=== PATIENT | male | born 1960 | race Caucasian/White ===

== ENCOUNTER → 2017-10-12 08:31 | Outpatient (CLI) | payer BC ==
[2016-03-10 06:36] VITALS: BMI 20.1
--- NOTE | ~2017-10-12 | EC ---
PATIENT:AMBROCIO WOLF DATE OF SERVICE: 10/12/17 SEX: M MEDICAL RECORD: [id number] DATE OF : 60 [facility] AGE OF PATIENT: 57 ADMISSION DATE: 10/12/17 REFERRING PHYSICIAN: INTERPRETING PHYSICIAN: CARO MCGUIRE MD ECHOCARDIOGRAM REPORT ECHO CHARGES 4 ECHO COMPLETE Date: 10/12 CLINICAL DIAGNOSIS: CP/HTN ECHOCARDIOGRAPHIC MEASUREMENTS (adult normal given) AC root (d.<3.7cm) 2.6 cm LV Septum d (<1.2 cm> 1.2 cm Valve Excursion 1.8 cm LV Septum (systole) 1.7 cm Left Atria (s.<4.0cm> 3.6 cm LVPW d(<1.2cm) 1.0 cm RV (d.<2.3cm) 2.9 cm LVPW (sytole) 1.5 cm LV diastole(<5.6CM) 4.2 cm MV E-F(>70mm/sec) cm LV systole 2.5 cm LVOT Diameter 1.6 cm MV exc.(>10mm) cm Est.ejection fraction (50-75%) % DOPPLER: LVIT cm/sec A 56.0 cm/sec E 74.0 cm/sec LA cm/sec RVSP 49.1 mmHg LVOT 111 cm/sec AOP1/2T m/s Asc. Ao 142 cm/sec RVOT 55.0 cm/sec RA cm/sec PA 98.0 cm/sec AV Gradient Peak 8.1 mmHg AV Mean 3.7 mmHg AV Area 1.4 cm MV Gradient Peak 4.1 mmHg MV Mean 1.5 mmHg MV Area cm COMMENTS: Compressor Repairer: Cali PIZARROOE Application Software Developer: Allen Mcguire TAPE# PACS Pericardial Effusion N DATE OF SERVICE: 10/12/2017 PROCEDURE: Transthoracic echocardiogram. FINDINGS: 1. The left ventricle has mild concentric left ventricular hypertrophy. Inflow characteristics are normal. There is no significant regional wall motion abnormalities. Ejection fraction is 55%. 2. The right ventricle appears to be normal size, normal function. 3. The aortic valve has thickening and mild sclerosis of the noncoronary cusp ECHOCARDIOGRAM REPORT [id number] AMBROCIO WOLF without significant evidence of stenosis or insufficiency. 4. The mitral valve is structurally normal. Trace mitral regurgitation. 5. Tricuspid valve has mild tricuspid regurgitation to moderate tricuspid regurgitation, RVSP of 45 to 50 mmHg. 6. The right ventricle is mildly dilated. 7. The right atrium is mildly dilated. 8. The pericardium is normal. CONCLUSIONS: The patient has evidence of mild hypertensive heart disease and has evidence of mild pulmonary hypertension. TRANSINT:[id number] Voice Confirmation ID: [id number] DOCUMENT ID: [id number] CARO MCGUIRE MD at 0942 CC: [id number] DICTATION DATE: 10/13/17 1001 SHIPS EQUIPMENT ENGINEER: 10/13/17 1306 DEP CLI 10/12/17 [facility] [address] [place] [address]
[~2017-10-12 08:31] MED LIST: BAYER CHEWABLE81 MG PO; HYDROCODON-ACE1 EAC7 PO; PLAVIX75 MG PO; TENORMIN25 MG PO
== END | disposition home or self-care (01) ==
LOC: D.ECHO 08:31
DX: R07.9 Chest pain, unspecified (principal); I10 Essential (primary) hypertension

== ENCOUNTER 2017-10-14 09:22 | Outpatient (CLI) | payer BC ==
[~2017-10-14] VITALS: Ht 172.7 cm; Wt 65.5 kg
--- NOTE | ~2017-10-14 | HEMODYNAMI ---
PATIENT:AMBROCIO WLOF MEDICAL RECORD: [id number] : 60 LOCATION:[facility] ADMISSION DATE: 10/14/17 Generatedon:10/14/201712:22 Patient name: AMBROCIO WOLF Patient #: [id number] SSN: : 1960 Date of study: 10/14/2017 Page: Of Hemodynamic Procedure Report Patient Data Patient Demographics Procedure consent was obtained First Name: AMBROCIO Gender: Male Last Name: MARYANN : 1960 [facility] Initial: JANNETH Age: 57 year(s) Patient #: [id number] Race: Unknown Additional ID: [id number] Contact details Address: [address] [place] [address] State: [place] City: [place] Zip code: [address] Past Medical History Allergies Allergen Reaction Date Comments Reported Other allergy 10/14/2017 [facility] Admission Admission Data Admission Date: 10/14/2017 Admission Time: 9:22 Lab Results Lab Result Date: 10/14/2017 Lab Result Time: 11:07 Biochemistry Name Units Result Min Max BUN mg/dl 13 --(--*-)-- 7 18 Creatinine mg/dl 0.8 --(-*--)-- 0.6 1.3 CBC Name Units Result Min Max Hematocrit % 48.8 --(--*-)-- 42 54 Hemoglobin g/dl 16.7 --(---*)-- 13.5 17.5 Procedure Procedure Types Cath Procedure Diagnostic Procedure LHC LHC w/Coronaries Procedure Description Procedure Date Procedure Date: 10/14/2017 Procedure Start Time: 12:05 Procedure End Time: 12:19 Procedure Staff Name Function Efren Mulligan MD Performing Physician Alvin Fernandes RT Monitor Bayron Rivera RN Nurse Anoop Lambert RT Scrub Procedure Data Cath Procedure Fluoroscopy Diagnostic fluoroscopy Total fluoroscopy Time: 1.3 time: 1.3 min min Diagnostic fluoroscopy Total fluoroscopy dose: dose: 55.63 mGy 55.63 mGy Contrast Material Contrast Material Type Amount (ml) Isovue 300 45 Entry Location Entry Primary Successful Side Size Upsize Upsize Entry Closure Sifuentes ccessful Closure Location (Fr) 1 (Fr) 2 (Fr) Remarks Device Remarks Radial Right 6 Fr Mechanical artery Short Compression Estimated blood loss: 5 ml Diagnostic catheters Device Type Used For End Catheter Placement DIAGNOSTIC [place] 110cm 5 Procedure Fr catheter ([id number]) Procedure Complications No complications Procedure Medications Medication Administration Route Dosage Oxygen etCO2 Nasal cannula 2 l/min Heparin Flush Bag added to field 2 bags (1000units/500ml NS) 0.9% NaCl I.V. 100 ml/hr Radial Cocktail added to field 1 syringe (Verapomil 2mg/Nitro 400mcg/Heparin 1500units) Fentanyl I.V. 50 mcg Versed I.V. 1 mg Radial Cocktail I.A. 1 syringe (Verapomil 2mg/Nitro 400mcg/Heparin 1500units) Hemodynamics Rest HGB: 16.7 (g/dl) Heart Rate: 78 (bpm) Pressure Samples Time Site Value (mmHg) Purpose Heart Use Rate(bpm) 12:08 LV 139/-14,12 Snapshot 86 Gradients Valve Time Site Site Mean SEP/DFP Peak To Heart Use 1 2 (mmHg) (sec/min) Peak Rate (mmHg) (bpm) Aortic 12:09 LV AO 59 Snapshots Pre Cath Intra NCS Post Cath Vital Signs Time Heart Resp SPO2 etCO2 NIBP (mmHg) Rhythm Pain Sedation Rate (ipm) (%) (mmHg) Status Level (bpm) 11:52:30 67 11 96 141/54(116) NSR 0 (11) 10(A) , No pain 11:56:42 72 11 96 136/76(113) NSR 0 (11) 10(A) , No pain 12:00:43 71 18 96 122/83(102) NSR 0 (11) 10(A) , No pain 12:04:45 79 18 95 34.5 115/78(97) NSR 0 (11) 10(A) , No pain 12:08:57 86 17 90 21.7 113/71(87) NSR 0 (11) 9(A) , No pain 12:12:55 82 16 92 30 117/89(98) NSR 0 (11) 9(A) , No pain 12:13:46 74 16 92 24 118/71(87) NSR 0 (11) 9(A) , No pain 12:17:51 76 10 95 33 110/64(85) NSR 0 (11) 9(A) , No pain Medications Time Medication Route Dose Verified Delivered Reason Notes Effectiveness by by 11:55:14 Oxygen etCO2 2 l/min Efren Bayron Per Nasal Ese Rivera RN physician cannula 11:55:26 Heparin Flush added 2 bags Efren Bayron used for Bag to Ese Rivera RN procedure (1000units/500ml field MAR NS) 11:55:36 0.9% NaCl I.V. 100 Efren Bayron Per ml/hr Ese Rivera RN physician 11:55:45 Radial Cocktail added 1 Efren Bayron used for (Verapomil to syringe Ese Rivera RN procedure 2mg/Nitro field MAR 400mcg/Heparin 1500units) 12:05:46 Fentanyl I.V. 50 mcg Efren Bayron for sedation Ese Rivera RN, MD 12:05:53 Versed I.V. 1 mg Efren Bayron for sedation Ese Rivera RN, MD 12:08:14 Radial Cocktail I.A. 1 Efren Efren for (Verapomil syringe Ese Mulligan MD vasodilation 2mg/Nitro 400mcg/Heparin 1500units) Procedure Log Time Note 11:30:21 Alvin Fernandes RT(R) (CV) sent for patient. Start room use. 11:36:39 Diagnostic Cath Status : Elective 11:40:22 Time tracking: Regular hours (M-F 7:00 - 5:00) 11:40:25 Plan of Care:Hemodynamics will remain stable., Cardiac rhythm will remain stable., Comfort level will be maintained., Respiratory function will remain adequate., Patient/ family verbilizes understanding of procedure., Procedure tolerated without complication., Recovers from procedure without complications.. 11:40:35 H&P Date Dictated: 10/13/2017 Within 30 days and on chart., H&P Addendum completed by physician on day of procedure. (MUST COMPLETE FOR ALL OUTPATIENTS). 11:42:23 Lab Result : BUN 13 mg/dl 11:42:23 Lab Result : Hematocrit 48.8 % 11:42:23 Lab Result : Hemoglobin 16.7 g/dl 11:42:23 Lab Result : Creatinine 0.8 mg/dl 11:42:27 Family in waiting room. 11:42:46 Patient allergic to Other allergyShrimp 11:42:48 Is the patient allergic to Iodine/contrast media? Yes. 11:42:50 Was the patient premedicated? Yes 11:43:18 Patient received from Pre/Post Procedure Room to CCL 3 Alert and oriented. Tansferred to table in Supine position. 11:43:19 Warm blankets applied, and lydia hugger turned on for patient comfort. 11:43:19 Correct patient and procedure confirmed by team. 11:43:20 Signed procedure consent form obtained from patient. 11:43:21 ECG and BP/O2 sat monitors applied to patient. 11:43:23 Pre-procedure instructions explained to patient. 11:51:06 Vital chart was started 11:55:14 Oxygen 2 l/min etCO2 Nasal cannula was administered by Bayron Rivera RN; Per physician; 11:55:26 Heparin Flush Bag (1000units/500ml NS) 2 bags added to field was administered by Bayron Rivera RN; used for procedure; 11:55:36 0.9% NaCl 100 ml/hr I.V. was administered by Bayron Rivera RN; Per physician; 11:55:45 Radial Cocktail (Verapomil 2mg/Nitro 400mcg/Heparin 1500units) 1 syringe added to field was administered by Bayron Rivera RN; used for procedure; 12:00:00 Baseline sample Acquired. 12:00:05 Rhythm: sinus rhythm 12:00:35 Baseline sample Acquired. 12:00:36 Full Disclosure recording started 12:00:42 Is patient on blood thinner?Yes 12:00:45 ACC The patient was administered the following blood thiners within the last 24 hours: ACCPlavix 12:00:47 Patient diabetic? No. 12:00:50 ----Pre-sedation anethsthesia assessment.---- 12:00:53 Previous problem with sedation/anesthesia? No ? 12:00:55 Snore? Yes 12:00:56 Sleep apnea? No 12:00:58 Deviated septum? No 12:00:59 Opens mouth fully? Yes 12:01:00 Sticks out tongue? Yes 12:01:03 Airway obstruction? No ? 12:01:13 Dentures? Yes OUT 12:01:18 Pre procedure: right dorsailis pedis pulse 2+ Normal; easily identifiable; not easily obliterated 12:01:22 Modified Terrence's test Ulnar < 7 seconds 12:01:25 Patient pain scale 0/10 ?. 12:01:35 IV patent on arrival in left antecubital with 0.9% NaCl at [facility]. 12:02:21 Lab results completed and on chart. 12:02:26 Right Radial & Right Groin area was prepped with chlora-prep and draped in sterile fashion 12:02:33 Alarms reviewed by R. N. 12:02:34 Sharps counted by scrub and verified by R.N. 12:03:30 Use device set Radial Dx or PCI 12:03:31 ACIST Syringe (16805) opened to sterile field. 12:03:32 Medline Cath Pack ([id number]) opened to sterile field. 12:03:32 Bag Decanter (2002S) opened to sterile field. 12:03:33 DIAGNOSTIC WIRE .035 260cm J wire (395435) opened to sterile field. 12:03:33 ACIST Hand Control (93263) opened to sterile field. 12:03:34 ACIST Manifold (49609) opened to sterile field. 12:03:35 Tegaderm 4 x 4 (1626W) opened to sterile field. 12:03:40 SHEATH 6Fr Prelude Radial ([id number]) opened to sterile field. 12:03:51 Physician arrived 12:03:51 --------ALL STOP TIME OUT------ 12:03:52 Final Timeout: patient, procedure, and site verified with staff and physician. All members of the team are in agreement. 12:03:54 Right Radial & Right Groin site verified by team. 12:03:58 Physical assessment completed. ASA score P 2 - A patient with mild systemic disease as per Efren Mulligan MD. 12:04:02 Sedation plan: IV Moderate Sedation Medication:Versed, Fentanyl 12:05:46 Fentanyl 50 mcg I.V. was administered by Bayron Rivera RN; for sedation; 12:05:52 Procedure started. 12:05:53 Versed 1 mg I.V. was administered by Bayron Rivera RN; for sedation; 12:05:58 Local anesthetic to right radial artery with Lidocaine 2% by Efren Mulligan MD.INITIAL ACCESS ONLY 12:07:33 A 6 Fr Short sheath was inserted into the Right Radial artery 12:07:41 Zero performed for pressure channel P1 12:08:00 A DIAGNOSTIC [place] 110cm 5 Fr catheter (896346) was advanced over the wire and used for Procedure. 12:08:14 Radial Cocktail (Verapomil 2mg/Nitro 400mcg/Heparin 1500units) 1 syringe I.A. was administered by Efren Mulligan MD; for vasodilation; 12:09:03 LV hemodynamics recorded. 12:09:05 LV gram done using JIM 12:10:06 EF : 60 % 12:10:10 RCA angiography performed. 12:11:13 LCA angiography performed. 12:12:06 Catheter removed. 12:12:15 TR BAND Standard ([id number]) opened to sterile field. 12:12:56 Sheath removed intact; hemostasis achieved with Mechanical Compression to the Right Radial artery. 12:12:59 Procedure ended.(Physican Out) 12:13:19 Fluoroscopy time 01.30 minutes. 12:13:27 Fluoroscopy dose: 55.63 mGy 12:13:27 Flurop Dose total: 55.63 12:15:57 Contrast amount:Isovue 300 45ml. 12:16:00 Sharps counted by scrub and verified by R.N. 12:16:07 TR band inflated with 8cc of air. 12:16:09 Insertion/operative site no bleeding no hematoma. 12:16:19 Post right radial artery:stable 12:18:39 Post Procedure Pulses reassessed and unchanged 12:18:42 Post-procedure physical assessment completed. ASA score P 2 - A patient with mild systemic disease as per Efren Mulligan MD. 12:18:45 Post procedure rhythm: unchanged. 12:18:47 Estimated blood loss: 5 ml 12:18:48 Post procedure instruction explained to patient.Patient verbalizes understanding. 12:18:48 Patient needs reinforcement of post procedure teaching. 12:19:31 Procedure and supply charges have been captured, reviewed, submitted and are correct. 12:19:33 Procedure Complication : No complications 12:19:35 Vital chart was stopped 12:19:35 See physician's report for complete and final results. 12:19:36 Report given to Pre/Post Procedure Room. 12:19:39 Patient transfered to Pre/Post Procedure Room with Stretcher. 12:19:40 Procedure ended. 12:19:40 Full Disclosure recording stopped 12:19:44 End room use (Document Last) Device Usage Item Name Manufacture Quantity Catalog Number Hospital Part Current M inimal Lot# / Charge Number Stock Stock Serial# Code ACIST Syringe Acist 1 28065 294270 505758 103702 2 0 (39705) [employer] Medline Cath Cardinal 1 [id number] 514269 07207 674939 5 Pack Health ([id number]) Bag Decanter Microtek 1 2001S 014638 97774 583455 5 (2001S) Medical Inc. DIAGNOSTIC WIRE St Mehlu 1 506064 002539 969276 459501 3 0 .035 260cm J wire (620825) ACIST Hand Acist 1 36094 294695 094034 972484 5 Control (48937) [employer] ACIST Manifold Acist 1 99355 231002 826253 648731 5 (94905) [employer] Inc Tegaderm 4 x 4 3M 1 1626W 657355 854393 289919 5 (1626W) SHEATH 6Fr Merit 1 [id number] 971379 750353 482187 5 Prelude Radial Medical ([id number]) DIAGNOSTIC Terumo 1 40-1775 895061 582317 047339 5 [place] 110cm 5 Fr catheter (842905) TR BAND Terumo 1 [id number] 137923 578676 023353 4 0 Standard ([id number]) Signature Audit [place] Stage Time Signature Unsigned Intra-Procedure 10/14/2017 Alvin Fernandes 12:21:58 PM RT(R) (CV) Signatures Monitor : Alvin Fernandes RT Signature : Date : Time : [address] [id number] [place] [address]
[~2017-10-14 09:22] MED LIST changes: -BAYER CHEWABLE81 MG PO; -PLAVIX75 MG PO; -TENORMIN25 MG PO
[2017-10-14] MEDS ORDERED: BAYER CHEWABLE81 MG PO (10:13)
[2017-10-14] MEDS ORDERED: TENORMIN25 MG PO (10:13)
[2017-10-14] MEDS ORDERED: PLAVIX75 MG PO (10:13)
[2017-10-14 10:19] VITALS: BP 142/70; Ht 172.7 cm; Wt 65.5 kg
[2017-10-14 10:27] LABS: BASOPHILS 0.5 % (0-2); EOSINOPHILS 6.8 % (0-7); HEMATOCRIT 48.8 % (42.0-54.0); HEMOGLOBIN 16.7 g/dL (13.5-17.5); IMMATURE GRANULOCYTES 0.2 % (0-5); LYMPHOCYTES 24.7 % (15-50); MCH 31.7 pg (26.0-34.0); MCHC 34.2 g/dL (31.0-37.0); MCV 92.8 fL (80.0-100.0); MEAN PLATELET VOLUME 10.1 fL (7.4-10.4); MONOCYTES 6.2 % (2-11); NEUTROPHILS 61.6 % (40-80); PLATELET COUNT 289 10x3/uL (130-400); RBC 5.26 10x6/uL (4.20-6.10); RDW 11.9 % (11.5-14.5); WBC 8.1 10x3/uL (4.8-10.8)
[2017-10-14 11:21] LABS: CALC OSMOLALITY 270 mosm/kg (275-300); CALCIUM 8.5 mg/dL (8.5-10.1); CARBON DIOXIDE 27.3 mmol/L (21.0-32.0); CHLORIDE - SERUM 103 mmol/L (98-107); CREATININE - SERUM 0.8 mg/dL (0.6-1.3); GLUCOSE 81 mg/dL (74-106); POTASSIUM - SERUM 4.5 mmol/L (3.5-5.1); SODIUM 136 mmol/L (136-145); UREA NITROGEN 13 mg/dL (7-18); eGFR NON AFRICAN AMERICAN > 90 mL/min (90-120)
== END 2017-10-14 14:30 | disposition home or self-care (01) ==
LOC: D.CATH 09:22
PROVIDERS: Internal Medicine Cardiovascular Disease
DX: I25.10 Atherosclerotic heart disease of native coronary artery without angina pectoris (principal); R94.39 Abnormal result of other cardiovascular function study; Z01.812 Encounter for preprocedural laboratory examination

== ENCOUNTER → 2017-11-21 18:22 | Outpatient (CLI) | payer BC ==
[2017-10-14 10:19] VITALS: BMI 21.9
[~2017-11-21 18:22] MED LIST changes: +BAYER CHEWABLE81 MG PO; +PLAVIX75 MG PO; +TENORMIN25 MG PO
[2017-11-21 19:41] LABS: CHOL - HDL RATIO 4.5 ratio (2.3-4.9); LDL-HDL RATIO 2.5 ratio (1.5-3.5)
== END | disposition home or self-care (01) ==
LOC: D.LABREF 18:22
PROVIDERS: Internal Medicine Cardiovascular Disease
DX: I10 Essential (primary) hypertension (principal)

== ENCOUNTER → 2018-01-05 07:31 | Outpatient (CLI) | payer BC ==
[2017-10-14 10:19] VITALS: BMI 21.9
== END | disposition home or self-care (01) ==
LOC: D.RT 01-03 08:00 → D.RAD 01-03 08:45 → D.LAB 01-03 09:00 → D.RT 07:31
DX: J44.9 Chronic obstructive pulmonary disease, unspecified (principal)

== ENCOUNTER → 2018-01-18 18:37 | Outpatient (CLI) | payer BC ==
[2017-10-14 10:19] VITALS: BMI 21.9
== END | disposition home or self-care (01) ==
LOC: D.SLEEP 18:37
DX: G47.33 Obstructive sleep apnea (adult) (pediatric) (principal); Z01.812 Encounter for preprocedural laboratory examination

== ENCOUNTER → 2018-06-01 09:45 | Outpatient (CLI) | payer BC ==
[2017-10-14 10:19] VITALS: BMI 21.9
--- NOTE | ~2018-06-01 | EC ---
PATIENT:AMBROCIO WOLF DATE OF SERVICE: 06/01/18 SEX: M MEDICAL RECORD: [id number] DATE OF : 60 [facility] AGE OF PATIENT: 58 ADMISSION DATE: 06/01/18 REFERRING PHYSICIAN: INTERPRETING PHYSICIAN: MARKY LORENZO MD ECHOCARDIOGRAM REPORT ECHO CHARGES 4 ECHO COMPLETE Date: 06/01/18 CLINICAL DIAGNOSIS: CAD/HTN HISTORY, DYSPNEA/ HX OF COPD ECHOCARDIOGRAPHIC MEASUREMENTS (adult normal given) AC root (d.<3.7cm) 3.1 cm LV Septum d (<1.2 cm> 1.3 cm Valve Excursion 1.8 cm LV Septum (systole) 1.7 cm Left Atria (s.<4.0cm> 3.6 cm LVPW d(<1.2cm) 1.6 cm RV (d.<2.3cm) 3.3 cm LVPW (sytole) 1.8 cm LV diastole(<5.6CM) 3.5 cm MV E-F(>70mm/sec) cm LV systole 2.2 cm LVOT Diameter 1.8 cm MV exc.(>10mm) 1.7 cm Est.ejection fraction (50-75%) % DOPPLER: LVIT cm/sec A 95.0 cm/sec E 78.0 cm/sec LA cm/sec RVSP 44 mmHg LVOT 110 cm/sec AOP1/2T m/s Asc. Ao 124 cm/sec RVOT 83 cm/sec RA cm/sec PA 131 cm/sec AV Gradient Peak 6.16 mmHg AV Mean 3.18 mmHg AV Area 2.2 cm MV Gradient Peak 3.80 mmHg MV Mean 1.39 mmHg MV Area cm COMMENTS: Manager Car: 2 GREG HERRING Back End Engineer: 1 Dr. Lorenzo TAPE# PACS Pericardial Effusion N DATE OF SERVICE: FINDINGS: 1. Left ventricular chamber size is within normal limits. Left ventricular systolic function is normal. Overall ejection fraction estimated at 60%. 2. Left atrium, right atrium, and right ventricular chamber sizes are within normal limits. 3. Valvular structures have normal structure and motion. 4. Doppler interrogation reveals mild tricuspid regurgitation. No other valvular insufficiency or stenosis. ECHOCARDIOGRAM REPORT [id number] AMBROCIO WOLF 5. No evidence of pericardial effusion or left ventricular thrombus. TRANSINT:[id number] Voice Confirmation ID: [id number] DOCUMENT ID: [id number] MARKY LORENZO MD at 0941 CC: [id number] DICTATION DATE: 06/01/18 1251 CARPENTER REPAIRER: 06/01/18 1437 DEP CLI 06/01/18 [place] [id number] [place] [id number]
== END | disposition home or self-care (01) ==
LOC: D.ECHO 05-29 13:30
DX: I25.10 Atherosclerotic heart disease of native coronary artery without angina pectoris (principal); E87.5 Hyperkalemia; I10 Essential (primary) hypertension; R06.00 Dyspnea, unspecified

== ENCOUNTER → 2019-04-11 09:45 | Outpatient (CLI) | payer BC ==
[2017-10-14 10:19] VITALS: BMI 21.9
--- NOTE | 2019-04-17 11:41 | EC ---
PATIENT:AMBROCIO WOLF DATE OF SERVICE: 04/11/19 SEX: M MEDICAL RECORD: [id number] DATE OF : 60 [facility] AGE OF PATIENT: 59 ADMISSION DATE: 04/11/19 REFERRING PHYSICIAN: INTERPRETING PHYSICIAN: MARKY LORENZO MD ECHOCARDIOGRAM REPORT ECHO CHARGES 4 ECHO COMPLETE Date: 04/11/19 CLINICAL DIAGNOSIS: AFIB ECHOCARDIOGRAPHIC MEASUREMENTS (adult normal given) AC root (d.<3.7cm) 2.9 cm LV Septum d (<1.2 cm> 1.0 cm Valve Excursion 1.4 cm LV Septum (systole) 14.2 cm Left Atria (s.<4.0cm> 3.6 cm LVPW d(<1.2cm) 1.1 cm RV (d.<2.3cm) 2.9 cm LVPW (sytole) 1.2 cm LV diastole(<5.6CM) 3.8 cm MV E-F(>70mm/sec) cm LV systole 2.6 cm LVOT Diameter 1.7 cm MV exc.(>10mm) 0.70 cm Est.ejection fraction (50-75%) % DOPPLER: LVIT cm/sec A 91.0 cm/sec E 67.0 cm/sec LA cm/sec RVSP 39 mmHg LVOT 108 cm/sec AOP1/2T m/s Asc. Ao 126 cm/sec RVOT 95 cm/sec RA cm/sec PA 134 cm/sec AV Gradient Peak 6.30 mmHg AV Mean 2.93 mmHg AV Area 2.2 cm MV Gradient Peak 4.57 mmHg MV Mean 1.76 mmHg MV Area cm COMMENTS: Poultry Hatchery Supervisor: Luh HERRING Face Man: 1 Dr. Lorenzo TAPE# PACS Pericardial Effusion N DATE OF SERVICE: FINDINGS: 1. Left ventricular chamber size is within normal limits. Left ventricular systolic function is normal. Overall ejection fraction 60% to 65%. 2. Left atrium, right atrium, right ventricular chamber sizes are within normal limits. 3. Valvular structures have normal structure and motion. 4. Doppler interrogation reveals mild tricuspid regurgitation, no other valvular insufficiency or stenosis. ECHOCARDIOGRAM REPORT [id number] AMBROCIO WOLF 5. No evidence of pericardial effusion or left ventricular thrombus. TRANSINT:[id number] Voice Confirmation ID: [id number] DOCUMENT ID: [id number] MARKY LORENZO MD at 1141 CC: [id number] DICTATION DATE: 04/13/19 1057 RIBBON HAND: 04/13/19 1105 DEP CLI 04/11/19 [place] [id number] [place] [address]
== END | disposition home or self-care (01) ==
LOC: D.HCCECHO 09:45
PROVIDERS: ATTEND Internal Medicine Interventional Cardiology
DX: I48.91 Unspecified atrial fibrillation (principal)

== ENCOUNTER → 2020-09-03 10:40 | Outpatient (CLI) | payer SELFPAY ==
[2017-10-14 10:19] VITALS: BMI 21.9
== END | disposition home or self-care (01) ==
LOC: D.LAB 10:40
PROVIDERS: ATTEND Internal Medicine Pulmonary Disease
DX: J44.9 Chronic obstructive pulmonary disease, unspecified (principal); Z11.52 Encounter for screening for COVID-19

== ENCOUNTER → 2020-09-08 14:44 | Outpatient (CLI) | payer SELFPAY ==
[2017-10-14 10:19] VITALS: BMI 21.9
== END | disposition home or self-care (01) ==
LOC: D.RT 14:00
PROVIDERS: ATTEND Internal Medicine Pulmonary Disease
DX: J44.9 Chronic obstructive pulmonary disease, unspecified (principal)